=== PATIENT | female | born 1950 | race Caucasian/White ===

== ENCOUNTER 2019-03-28 14:02 | Inpatient (IN) | payer MEDICARE ==
[~2019-03-28] VITALS: Ht 162.6 cm; Wt 72.6 kg
--- NOTE | 2019-03-28 14:46 | PHYS DOC ---
Past Medical History Past Medical History: Asthma, Diabetes-Type II, GERD, Hypothyroid, Stroke Additional Past Medical Histor: OSTEIPOROSIS Past Surgical History: Appendectomy, Hysterectomy Additional Past Surgical Histo: LEFT KNEE,RIGHT SHOULDER Alcohol Use: None Drug Use: None Adult General Chief Complaint Chief Complaint: MECHANICAL FALL HPI HPI Patient is a 68 year old female with history of diabetes type 2, CVA with no residual, asthma, hypothyroidism, who presents to the ED today to be evaluated status post falling. Patient states she was at the gas station she tripped over the gas horse and fell hitting her forehead on the ground. Denies any loss of consciousness. She rates her pain is mild on bilateral hands, right knee posterior neck, head and chin. Patient states the pain is worse on touching the areas. Patient denies anything specific any alleviating the pain. She states she is on aspirin 325 mg. Review of Systems Review of Systems Constitutional: Denies fever or chills [] Eyes: Denies change in visual acuity, redness, or eye pain [] HENT: Denies nasal congestion or sore throat [] Respiratory: Denies cough or shortness of breath [] Cardiovascular: No additional information not addressed in HPI [] GI: Denies abdominal pain, nausea, vomiting, bloody stools or diarrhea [] : Denies dysuria or hematuria [] Musculoskeletal: Reports right knee pain, bilateral hand pain, posterior neck pain. Integument: Denies rash or skin lesions [] Neurologic: reports head pain, denies focal weakness or sensory changes [] All other systems were reviewed and found to be within normal limits, except as documented in this note. Current Medications Current Medications Current Medications Medications (Trade) Dose Ordered Sig/Lele Start Time Stop Time Status Last Admin Dose Admin Diphtheria/ Tetanus/Acell Pertussis (Boostrix) 0.5 ml ONCE ONCE 03/28/19 15:00 03/28/19 15:01 DC 03/28/19 15:26 0.5 ML Neomycin/ Polymyxin/ Bacitracin (Triple Antibiotic Ointment) 1 pkt 1X ONCE 03/28/19 15:00 03/28/19 15:01 DC 03/28/19 15:25 1 PKT Allergies Allergies Allergies Coded Allergies Type Severity Reaction Last Updated Verified clarithromycin Allergy Intermediate HIVES 03/28/19 Yes Physical Exam Physical Exam Constitutional: Well developed, well nourished, no acute distress, non-toxic appearance. [] HENT: Normocephalic, atraumatic, bilateral external ears normal, oropharynx moist, no oral exudates, nose normal. [] Bruising noted on the chin. Crepitus to the jaw during range of motion. Eyes: PERRLA, EOMI, conjunctiva normal, no discharge. [] Neck: Normal range of motion, diffuse paraspinal muscle tenderness to bilateral posterior cervical spine, no midline cervical spine tenderness supple, no stridor. [] Cardiovascular:Heart rate regular rhythm, no murmur [] Lungs & Thorax: Bilateral breath sounds clear to auscultation [] Abdomen: Bowel sounds normal, soft, no tenderness, no masses, no pulsatile masses. [] Skin: Warm, dry, no erythema, no rash. [] Back: No tenderness, no CVA tenderness. [] Extremities: Right knee with no obvious deformity, bruising noted on the anterior aspect of the right knee. Full range of motion to the right knee, nontoxic, negative Rima anterior-posterior drawer sign. +2 right pedal pulse. No obvious deformity noted to bilateral hands. Superficial bruising noted to bilateral thumbs. Full range of motion to bilateral hands and fingers. Adequate radial, medial, ulnar sensation. +2 bilateral radial pulses. Neurologic: Alert and oriented X 3, normal motor function, normal sensory function, no focal deficits noted. Cranial nerves II through XII intact Psychologic: Affect normal, judgement normal, mood normal. [] Current Patient Data Vital Signs Vital Signs Date Time Temp Pulse Resp B/P (MAP) Pulse Ox O2 Delivery O2 Flow Rate FiO2 03/28/19 14:11 98.4 91 20 139/75 (96) 96 Room Air 98.4 EKG EKG [] Radiology/Procedures Radiology/Procedures []PROCEDURE: HAND BILAT 3V HAND BILAT 3V, KNEE RIGHT 4V History: Patient fell today. Pain of both hands and the right knee. Bilateral hand: 3 view right hand shows degenerative change particularly at the triscaphe and first carpometacarpal joint. Ulna plus is seen. No definite acute fracture or dislocation. No significant soft tissue abnormality. IMPRESSION: No evidence of acute fracture or dislocation 3 view left hand demonstrates degenerative at the triscaphe and first carpometacarpal joint. No evidence of acute fracture. No aggressive bone destruction. No significant soft tissue abnormality. IMPRESSION: No acute fracture or dislocation. 4 view right knee: Mild degenerative change at the patellofemoral joint. No evidence of acute fracture. No aggressive bone destruction. No significant soft tissue abnormality. Small area of ossification in the region of the medial collateral ligament proximal attachment likely due to old injury. IMPRESSION: No acute fracture or dislocation. Electronically signed by: Sim Shaffer MD (03/28/2019 3:29 PM) [facility] DICTATED and SIGNED BY: SIM SHAFFER MD DATE: 03/28/19 1529 PROCEDURE: CT HEAD AND CERVICAL SPINE WO CT HEAD AND CERVICAL SPINE WO, CT MAXILLOFACIAL WO CONTRAST Indication: Pain after a fall. Exposure: One or more of the following individualized dose reduction techniques were utilized for this examination: 1. Automated exposure control 2. Adjustment of the mA and/or kV according to patient size 3. Use of iterative reconstruction technique. Technique: Standard imaging without intravenous contrast. Comparison: None Head: Low-density in the white matter bilaterally, a nonspecific finding, but which is commonly due to chronic small vessel ischemic disease in a patient of this age. There is a small area of focal hyperdensity in the left periventricular white matter, series 2, image 13 measures about 7 mm. No evidence of mass effect. The visualized sinuses appear symmetric. No notable scalp hematoma. The visualized sinuses are clear. No evidence of depressed skull fracture. IMPRESSION: Small hyperdense focus in the left periventricular white matter without definite mass effect. In the context of trauma, this is most suspicious for a small contusion or hematoma. Short-term follow-up CT head or MRI brain could be helpful for further characterization and evaluation. Findings communicated by telephone to Valerie in the emergency room at 3:24 PM on March 28, 2019. Cervical spine: Defect at the posterior ring of C1 compatible with a developmental variant. Cervico-occipital junction is intact. C1 and C2 are symmetric. No evidence of acute fracture. No evidence of aggressive bone destruction. Vertebral body height is maintained. There is no evidence of jumped or locked facet joint. Uncovertebral joint spurring. Degenerative spondylosis at multiple levels with at least moderate spinal stenosis and up to severe neural foraminal stenosis bilaterally. Prevertebral soft tissues demonstrate no swelling or hematoma. Lung apices are clear. IMPRESSION: 1. Degenerative spondylosis with stenosis. 2. No evidence of acute fracture or traumatic subluxation. Facial bones: No evidence of nasal bone fracture. The orbital floors are intact. The paranasal sinuses are clear. No fluid level identified. No evidence of an acute fracture. The orbits appear intact and symmetric. No significant soft tissue swelling. IMPRESSION: No acute fracture. Electronically signed by: Sim Shaffer MD (03/28/2019 3:24 PM) [facility] DICTATED and SIGNED BY: SIM SHAFFER MD DATE: 03/28/19 1524 PROCEDURE: KNEE RIGHT 4V HAND BILAT 3V, KNEE RIGHT 4V History: Patient fell today. Pain of both hands and the right knee. Bilateral hand: 3 view right hand shows degenerative change particularly at the triscaphe and first carpometacarpal joint. Ulna plus is seen. No definite acute fracture or dislocation. No significant soft tissue abnormality. IMPRESSION: No evidence of acute fracture or dislocation 3 view left hand demonstrates degenerative at the triscaphe and first carpometacarpal joint. No evidence of acute fracture. No aggressive bone destruction. No significant soft tissue abnormality. IMPRESSION: No acute fracture or dislocation. 4 view right knee: Mild degenerative change at the patellofemoral joint. No evidence of acute fracture. No aggressive bone destruction. No significant soft tissue abnormality. Small area of ossification in the region of the medial collateral ligament proximal attachment likely due to old injury. IMPRESSION: No acute fracture or dislocation. Electronically signed by: Sim Shaffer MD (03/28/2019 3:29 PM) [facility] DICTATED and SIGNED BY: SIM SHAFFER MD DATE: 03/28/19 1529 PROCEDURE: CT MAXILLOFACIAL WO CONTRAST CT HEAD AND CERVICAL SPINE WO, CT MAXILLOFACIAL WO CONTRAST Indication: Pain after a fall. Exposure: One or more of the following individualized dose reduction techniques were utilized for this examination: 1. Automated exposure control 2. Adjustment of the mA and/or kV according to patient size 3. Use of iterative reconstruction technique. Technique: Standard imaging without intravenous contrast. Comparison: None Head: Low-density in the white matter bilaterally, a nonspecific finding, but which is commonly due to chronic small vessel ischemic disease in a patient of this age. There is a small area of focal hyperdensity in the left periventricular white matter, series 2, image 13 measures about 7 mm. No evidence of mass effect. The visualized sinuses appear symmetric. No notable scalp hematoma. The visualized sinuses are clear. No evidence of depressed skull fracture. IMPRESSION: Small hyperdense focus in the left periventricular white matter without definite mass effect. In the context of trauma, this is most suspicious for a small contusion or hematoma. Short-term follow-up CT head or MRI brain could be helpful for further characterization and evaluation. Findings communicated by telephone to Valerie in the emergency room at 3:24 PM on March 28, 2019. Cervical spine: Defect at the posterior ring of C1 compatible with a developmental variant. Cervico-occipital junction is intact. C1 and C2 are symmetric. No evidence of acute fracture. No evidence of aggressive bone destruction. Vertebral body height is maintained. There is no evidence of jumped or locked facet joint. Uncovertebral joint spurring. Degenerative spondylosis at multiple levels with at least moderate spinal stenosis and up to severe neural foraminal stenosis bilaterally. Prevertebral soft tissues demonstrate no swelling or hematoma. Lung apices are clear. IMPRESSION: 1. Degenerative spondylosis with stenosis. 2. No evidence of acute fracture or traumatic subluxation. Facial bones: No evidence of nasal bone fracture. The orbital floors are intact. The paranasal sinuses are clear. No fluid level identified. No evidence of an acute fracture. The orbits appear intact and symmetric. No significant soft tissue swelling. IMPRESSION: No acute fracture. Electronically signed by: Sim Shaffer MD (03/28/2019 3:24 PM) [facility] DICTATED and SIGNED BY: SIM SHAFFER MD DATE: 03/28/19 1524 Course & Med Decision Making Course & Med Decision Making Pertinent Labs and Imaging studies reviewed. (See chart for details) This is a 68-year-old female patient presenting to the ED today to be evaluated status post falling at the gas station. No loss of consciousness. Patient complaining of jaw pain, head pain, bilateral hand pain, posterior neck pain right knee pain. Bilateral hand x-rays are negative for any acute findings, right knee x-rays negative for any acute findings. CT of the maxillofacial and cervical spine are negative. Radiology contacted me, he states patient's CT of the head is suspicious for small contusion or hematoma on the left periventricular region of the brain. Spoke with Kaylee BARRIENTOS for Dr. Olivera who requested we admit patient in ICU Consulted with Dr. Lion who accepted patient for admission. Patient's tetanus was updated. She is alert and oriented 4. She is neurologically intact Dragon Disclaimer Dragon Disclaimer This electronic medical record was generated, in whole or in part, using a voice recognition dictation system. Departure Departure Impression: Primary Impression: Fall Additional Impressions: Traumatic hematoma of scalp Contusion of right knee Hand contusion Disposition: ADMITTED INPATIENT Condition: STABLE Referrals: UNKNOWN PCP NAME (PCP) Problem Qualifiers Primary Impression: Fall Encounter type: initial encounter Qualified Codes: W19.XXXA - Unspecified fall, initial encounter Additional Impressions: Traumatic hematoma of scalp Encounter type: initial encounter Qualified Codes: S00.03XA - Contusion of scalp, initial encounter Contusion of right knee Encounter type: initial encounter Qualified Codes: S80.01XA - Contusion of right knee, initial encounter Hand contusion Encounter type: initial encounter Laterality: left Qualified Codes: S60.222A - Contusion of left hand, initial encounter VALERIE LUBIN [employer] Mar 28, 2019 14:46
[2019-03-28] MEDS ORDERED: NEOMY/BACITR/POLYMYXIN OINT PACKET. TP ONE (15:00)
[2019-03-28] MEDS ORDERED: DIPHTH,PERTUSS(ACELL),TET TOX 0.5 ML DISP.SYRIN. VAX IM ONE (15:00)
--- NOTE | 2019-03-28 15:27 | RAD ---
CT HEAD AND CERVICAL SPINE WO, CT MAXILLOFACIAL WO CONTRAST Indication: Pain after a fall. Exposure: One or more of the following individualized dose reduction techniques were utilized for this examination: 1. Automated exposure control 2. Adjustment of the mA and/or kV according to patient size 3. Use of iterative reconstruction technique. Technique: Standard imaging without intravenous contrast. Comparison: None Head: Low-density in the white matter bilaterally, a nonspecific finding, but which is commonly due to chronic small vessel ischemic disease in a patient of this age. There is a small area of focal hyperdensity in the left periventricular white matter, series 2, image 13 measures about 7 mm. No evidence of mass effect. The visualized sinuses appear symmetric. No notable scalp hematoma. The visualized sinuses are clear. No evidence of depressed skull fracture. IMPRESSION: Small hyperdense focus in the left periventricular white matter without definite mass effect. In the context of trauma, this is most suspicious for a small contusion or hematoma. Short-term follow-up CT head or MRI brain could be helpful for further characterization and evaluation. Findings communicated by telephone to Valerie in the emergency room at 3:24 PM on March 28, 2019. Cervical spine: Defect at the posterior ring of C1 compatible with a developmental variant. Cervico-occipital junction is intact. C1 and C2 are symmetric. No evidence of acute fracture. No evidence of aggressive bone destruction. Vertebral body height is maintained. There is no evidence of jumped or locked facet joint. Uncovertebral joint spurring. Degenerative spondylosis at multiple levels with at least moderate spinal stenosis and up to severe neural foraminal stenosis bilaterally. Prevertebral soft tissues demonstrate no swelling or hematoma. Lung apices are clear. IMPRESSION: 1. Degenerative spondylosis with stenosis. 2. No evidence of acute fracture or traumatic subluxation. Facial bones: No evidence of nasal bone fracture. The orbital floors are intact. The paranasal sinuses are clear. No fluid level identified. No evidence of an acute fracture. The orbits appear intact and symmetric. No significant soft tissue swelling. IMPRESSION: No acute fracture. Electronically signed by: Sim Shaffer MD (03/28/2019 3:24 PM) [facility]
--- NOTE | 2019-03-28 15:32 | RAD ---
HAND BILAT 3V, KNEE RIGHT 4V History: Patient fell today. Pain of both hands and the right knee. Bilateral hand: 3 view right hand shows degenerative change particularly at the triscaphe and first carpometacarpal joint. Ulna plus is seen. No definite acute fracture or dislocation. No significant soft tissue abnormality. IMPRESSION: No evidence of acute fracture or dislocation 3 view left hand demonstrates degenerative at the triscaphe and first carpometacarpal joint. No evidence of acute fracture. No aggressive bone destruction. No significant soft tissue abnormality. IMPRESSION: No acute fracture or dislocation. 4 view right knee: Mild degenerative change at the patellofemoral joint. No evidence of acute fracture. No aggressive bone destruction. No significant soft tissue abnormality. Small area of ossification in the region of the medial collateral ligament proximal attachment likely due to old injury. IMPRESSION: No acute fracture or dislocation. Electronically signed by: Sim Shaffer MD (03/28/2019 3:29 PM) [facility]
[2019-03-28] MEDS ORDERED: MORPHINE SULFATE 4 MG/ML VIAL. IV PRN (16:30)
[2019-03-28] MEDS ORDERED: ONDANSETRON PF 4 MG/2 ML VIAL. IV PRN (16:30)
[2019-03-28 16:36] LABS: BILIRUBIN,URINE SMALL (NEG); CLARITY,URINE CLEAR; COLOR,URINE YELLOW; NITRITE,URINE NEGATIVE (NEG); PH,URINE 5.5; PROTEIN,URINE NEGATIVE (NEG-TRACE)
[2019-03-28 16:41] LABS: BACTERIA,URINE 0 /HPF (0-FEW); RBC,URINE 0 /HPF (0-2); SQUAMOUS EPITHELIAL CELL,UR MOD /LPF; WBC,URINE OCC /HPF (0-4)
[2019-03-28] MEDS: ACETAMINOPHEN 325 MG TABLET. PO PRN ×2 (16:49→21:32)
[2019-03-28 16:50] LABS: BASO # 0.1 x10^3/uL (0.0-0.2); BASO % 1 % (0-3); EOS # 0.3 x10^3/uL (0.0-0.7); EOS % 3 % (0-3); HEMATOCRIT 42.9 % (36.0-47.0); HEMOGLOBIN 14.5 g/dL (12.0-15.5); LYMPH # 1.9 x10^3/uL (1.0-4.8); LYMPH % 18 % (24-48); MEAN CORPUSCULAR HEMOGLOBIN 31 pg (25-35); MEAN CORPUSCULAR HGB CONC 34 g/dL (31-37); MEAN CORPUSCULAR VOLUME 91 fL (79-100); MONO # 0.6 x10^3/uL (0.0-1.1); MONO % 6 % (0-9); NEUT # 7.8 x10^3uL (1.8-7.7); NEUT % 73 % (31-73); PLATELET COUNT 301 x10^3/uL (140-400); RED BLOOD COUNT 4.73 x10^6/uL (3.50-5.40); RED CELL DISTRIBUTION WIDTH 13.2 % (11.5-14.5); WHITE BLOOD COUNT 10.6 x10^3/uL (4.0-11.0)
[2019-03-28 16:58] LABS: PROTHROMBIN TIME PATIENT 13.2 SEC (11.7-14.0)
[2019-03-28] MEDS ORDERED: IV NORMAL SALINE 1000ML BAG 1,000 ML IV ONE (17:00)
[2019-03-28 17:12] LABS: CALCIUM 9.6 mg/dL (8.5-10.1); CREATININE 0.9 mg/dL (0.6-1.0); GFR 62.3
[2019-03-28 17:20] LABS: ALBUMIN 4.1 g/dL (3.4-5.0); ALBUMIN/GLOBULIN RATIO 1.2 (1.0-1.7); TOTAL BILIRUBIN 0.4 mg/dL (0.2-1.0); TOTAL PROTEIN 7.5 g/dL (6.4-8.2)
--- NOTE | 2019-03-28 17:22 | NUR ---
Arrived to unit by cart from ER. Alert and oriented x'4. No c/o at this time. Noted bruise under chin, scraped right knee and scratches on hands due to a fall. IVF's intact and infusing. Oriented to room and controls. Instructed pt not to get out bed without calling for assistance. Verbalized understanding. Placed on telemonitor, Beth RN, charge nurse will read and monitor it. Side rails up x's 2 with call light in reach. Cont. monitor.
[2019-03-28] MEDS ORDERED: ALBU2.5V8 INH (17:57)
[2019-03-28] MEDS ORDERED: VENL75CA PO (17:57)
[2019-03-28] MEDS ORDERED: LEVO150T5 PO (17:57)
[2019-03-28] MEDS ORDERED: ASPI325T8 PO (17:57)
[2019-03-28] MEDS ORDERED: METF500T9 PO (17:57)
[2019-03-28] MEDS ORDERED: CHOL100013 PO (17:57)
[2019-03-28] MEDS ORDERED: OMEP20CA10 PO (17:57)
[2019-03-28] MEDS ORDERED: BUDE10.22 IH (17:57)
[2019-03-28] MEDS ORDERED: MELO15TA23 PO (17:57)
[2019-03-28] MEDS ORDERED: DILT180C64 PO (17:57)
[2019-03-28] MEDS ORDERED: CETI10TA PO (17:57)
[2019-03-28 18:00] VITALS: BP 138/73
[2019-03-28 19:00] VITALS: BP 149/78
[2019-03-28] MEDS ORDERED: CETIRIZINE HCL 10 MG TABLET. PO PRN (19:45)
[2019-03-28 20:00] VITALS: BP 154/73
[2019-03-28] MEDS: BUDESONIDE 0.5 MG/2 ML NEBU. NEB SCH (20:39)
[2019-03-28] MEDS: ALBUTEROL SULFATE 2.5 MG/3 ML NEBU. NEB SCH (20:39)
[2019-03-28 21:00] VITALS: BP 130/69
[2019-03-28] MEDS ORDERED: LEVOTHYROXINE 150 MCG TABLET PO SCH (21:00)
[2019-03-28] MEDS ORDERED: metFORMIN XR 500 MG TAB.ER.24H PO SCH (21:00)
[2019-03-28] MEDS ORDERED: MELOXICAM 7.5 MG TABLET PO SCH (21:00)
[2019-03-28] MEDS ORDERED: VENLAFAXINE XR 37.5 MG CAP.ER.24H. PO SCH (21:00)
[2019-03-28] MEDS ORDERED: ASPIRIN 325 MG TABLET PO SCH (21:00)
[2019-03-28] MEDS ORDERED: NON FORMULARY ITEM (Budesonide/Formoterol Fumarate (Symbicort 80-4.5 Mcg Inhaler) 2 PUFF) IH SCH (21:00)
[2019-03-28] MEDS ORDERED: CHOLECALCIFEROL (VITAMIN D3) 1,000 UNIT TABLET PO SCH (21:00)
[2019-03-28 22:00] VITALS: BP 136/21
[2019-03-28 23:00] VITALS: BP 114/54
--- NOTE | 2019-03-28 23:04 | HP ---
ADMIT DATE: 03/28/2019 CHIEF COMPLAINT: Fall with facial trauma. HISTORY OF PRESENT ILLNESS: The patient is a pleasant 68-year-old female. She is a retired RN. Basically, she fell today. She tripped and hit her chin on concrete. She states she fell extremely hard. She has associated visual changes, although that has resolved. She did not pass out. She has a headache. We did a CAT scan in the ER showing possible hematoma in the periventricular space versus a contusion. The ER physician called Dr. Olivera of the neurosurgical service. He would like to have the patient admitted to the ICU. The patient is now being examined in room 109 in the ICU. PAST MEDICAL HISTORY: Diabetes, asthma, GERD, cerebellar syndrome, multiple falls, hypothyroidism, osteoporosis, appendectomy, hysterectomy, left knee and right shoulder surgery. ALLERGIES: CLARITHROMYCIN, EGGS AND CAISIN. FAMILY HISTORY: Coronary artery disease. SOCIAL HISTORY: She does not drink, smoke or take drugs. 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 MEDICATIONS: Reviewed, please refer to the MRAD. REVIEW OF SYSTEMS: GENERAL: No history of weight change, weakness or fevers. HEENT: She complains of neck pain and head pain. SKIN: No bruising, hair changes or rashes. EYES: No blurred, double or loss of vision. NOSE AND THROAT: No history of nosebleeds, hoarseness or sore throat. HEART: No history of palpitations, chest pain or shortness of breath on exertion. LUNGS: Denies cough, hemoptysis, wheezing or shortness of breath. GASTROINTESTINAL: Denies changes in appetite, nausea, vomiting, diarrhea or constipation. GENITOURINARY: No history of frequency, urgency, hesitancy or nocturia. NEUROLOGIC: Denies history of numbness, tingling, tremor or weakness. PSYCHIATRIC: No history of panic, anxiety or depression. ENDOCRINE: No history of heat or cold intolerance, polyuria or polydipsia. EXTREMITIES: Denies muscle weakness, joint pain, pain on walking or stiffness. PHYSICAL EXAMINATION: VITAL SIGNS: Temperature afebrile, pulse 98, respirations 18, blood pressure 138/73. GENERAL: She is alert, cooperative, very pleasant. Her family is present. HEART: Normal S1, S2. LUNGS: Clear. ABDOMEN: Soft. EXTREMITIES: Trace edema. SKIN: No rash. ENDOCRINE: No thyromegaly. LYMPHATICS: No cervical nodes. HEMATOPOIETIC: No bruising. PSYCHIATRIC: She is stable. HEENT: She is alert, oriented, moving all extremities. LABORATORY DATA: Hematology is normal. Electrolytes are normal other than a BUN of 26. ASSESSMENT AND PLAN: Fall on the concrete with a head trauma and a CAT scan showing a possible hematoma within the periventricular space. The patient is being admitted. We will consult Neurosurgery, ICU monitoring, frequent neuro checks, home meds. Full code. DVT prophylaxis. Suspect she will need another CAT scan in a day or two. [facility] DO DR: JACK/santosh JOB#: [id number] / [id number]
[2019-03-29] VITALS (12 sets, daily range): BP systolic 116–148; BP diastolic 49–76
[2019-03-29 05:21] LABS: BASO % 1 % (0-3); EOS # 0.3 x10^3/uL (0.0-0.7); EOS % 4 % (0-3); HEMATOCRIT 38.7 % (36.0-47.0); LYMPH # 1.8 x10^3/uL (1.0-4.8); LYMPH % 23 % (24-48); MEAN CORPUSCULAR HEMOGLOBIN 30 pg (25-35); MEAN CORPUSCULAR HGB CONC 34 g/dL (31-37); MEAN CORPUSCULAR VOLUME 91 fL (79-100); MONO # 0.5 x10^3/uL (0.0-1.1); MONO % 6 % (0-9); NEUT # 5.2 x10^3uL (1.8-7.7); NEUT % 66 % (31-73); PLATELET COUNT 247 x10^3/uL (140-400); RED BLOOD COUNT 4.26 x10^6/uL (3.50-5.40); RED CELL DISTRIBUTION WIDTH 13.1 % (11.5-14.5); WHITE BLOOD COUNT 7.8 x10^3/uL (4.0-11.0)
[2019-03-29 06:04] LABS: CALCIUM 9.1 mg/dL (8.5-10.1); CREATININE 0.8 mg/dL (0.6-1.0); GFR 71.3; POTASSIUM 3.9 mmol/L (3.5-5.1)
[2019-03-29] MEDS ORDERED: PANTOPRAZOLE 40 MG TABLET.DR. PO SCH (07:30)
[2019-03-29] MEDS: ALBUTEROL SULFATE 2.5 MG/3 ML NEBU. NEB SCH ×2 (07:46→11:19)
[2019-03-29] MEDS: BUDESONIDE 0.5 MG/2 ML NEBU. NEB SCH (07:46)
[2019-03-29] MEDS: ACETAMINOPHEN 325 MG TABLET. PO PRN (08:19)
--- NOTE | 2019-03-29 10:11 | RAD ---
EXAM: CT HEAD WITHOUT CONTRAST. HISTORY: Brain lesion, trauma. TECHNIQUE: Computed tomography of the head was performed without intravenous contrast. COMPARISON: 03/28/2019. FINDINGS: The site of concern within the left frontal white matter persists. It is seen as a region of hypoattenuation with a small internal region of isoattenuation measuring approximately 8 mm. There is no significant mass effect. No new hemorrhage is seen. Elsewhere, hypoattenuation within the periventricular white matter indicates mild to moderate chronic microangiopathic white matter change. The ventricles are normal in size and position. The visualized paranasal sinuses appear clear. The orbits are unremarkable. The temporal bones are unremarkable. The calvarium reveals no suspicious lesions. IMPRESSION: 1. The left frontal white matter lesion is unchanged over the short interval. Etiology is unclear, and this may represent a late subacute infarct or hemorrhage. MRI with and without contrast is recommended to exclude a mass if the diagnosis remains unclear. 2. Mild to moderate chronic microangiopathic white matter change. *One or more of the following individualized dose reduction techniques were utilized for this examination: 1. Automated exposure control. 2. Adjustment of the mA and/or kV according to patient size. 3. Use of iterative reconstruction technique. Electronically signed by: Wolfgang Perry MD (03/29/2019 10:08 AM) [facility]
--- NOTE | 2019-03-29 10:56 | PDOC ---
Provider Note Provider Note patient seen and examined s/p fall neuro intact small hyperdense focus in the left periventricular white matter without definite mass effect. In the context of trauma, this is most suspicious for a small contusion or hematoma on f/u CT the left frontal white matter lesion is unchanged over the short interval- reviewed with Dr. Olivera she may dc home and will make arrangements for f/u CT head in 1 week d/w CLARENCE FORTUNE APRN Mar 29, 2019 10:56
--- NOTE | 2019-03-29 11:47 | PDOC3 ---
Discharge Summary Visit Information Date of Admission: Mar 28, 2019 Date of Discharge: Mar 29, 2019 Final Diagnosis Fall on the concrete with a head trauma w/ possible hematoma within the periventricular space. Dm2 htn asthma Problems Medical Problems: (1) Contusion of right knee Status: Acute (2) Fall Status: Acute (3) Hand contusion Status: Acute (4) Traumatic hematoma of scalp Status: Acute Brief Hospital Course Allergies Allergies Coded Allergies Type Severity Reaction Last Updated Verified casein Allergy Intermediate 03/29/19 Yes clarithromycin Allergy Intermediate HIVES 03/28/19 Yes egg Allergy Intermediate 03/28/19 Yes Uncoded Allergies Type Severity Reaction Last Updated Verified shell Allergy Intermediate 03/28/19 Vital Signs Vital Signs Date Time Temp Pulse Resp B/P (MAP) Pulse Ox O2 Delivery O2 Flow Rate FiO2 03/29/19 11:20 97 Room Air 03/29/19 10:00 84 18 140/76 (97) 03/29/19 08:00 98.5 98.5 Lab Results Laboratory Tests Test 03/28/19 16:29 03/28/19 16:40 03/29/19 04:45 Urine Collection Type Unknown Urine Color Yellow Urine Clarity Clear Urine pH 5.5 Urine Specific [place] 1.025 Urine Protein Negative mg/dL (NEG-TRACE) Urine Glucose (UA) Negative mg/dL (NEG) Urine Ketones (Stick) Negative mg/dL (NEG) Urine Blood Negative (NEG) Urine Nitrite Negative (NEG) Urine Bilirubin Small (NEG) Urine Urobilinogen Dipstick 1.0 mg/dL (0.2 mg/dL) Urine Leukocyte Esterase Trace (NEG) Urine RBC 0 /HPF (0-2) Urine WBC Occ /HPF (0-4) Urine Squamous Epithelial Cells Mod /LPF Urine Bacteria 0 /HPF (0-FEW) Urine Mucus Marked /LPF White Blood Count 10.6 x10^3/uL (4.0-11.0) 7.8 x10^3/uL (4.0-11.0) Red Blood Count 4.73 x10^6/uL (3.50-5.40) 4.26 x10^6/uL (3.50-5.40) Hemoglobin 14.5 g/dL (12.0-15.5) 13.0 g/dL (12.0-15.5) Hematocrit 42.9 % (36.0-47.0) 38.7 % (36.0-47.0) Mean Corpuscular Volume 91 fL (79-100) 91 fL (79-100) Mean Corpuscular Hemoglobin 31 pg (25-35) 30 pg (25-35) Mean Corpuscular Hemoglobin Concent 34 g/dL (31-37) 34 g/dL (31-37) Red Cell Distribution Width 13.2 % (11.5-14.5) 13.1 % (11.5-14.5) Platelet Count 301 x10^3/uL (140-400) 247 x10^3/uL (140-400) Neutrophils (%) (Auto) 73 % (31-73) 66 % (31-73) Lymphocytes (%) (Auto) 18 % (24-48) 23 % (24-48) Monocytes (%) (Auto) 6 % (0-9) 6 % (0-9) Eosinophils (%) (Auto) 3 % (0-3) 4 % (0-3) Basophils (%) (Auto) 1 % (0-3) 1 % (0-3) Neutrophils # (Auto) 7.8 x10^3uL (1.8-7.7) 5.2 x10^3uL (1.8-7.7) Lymphocytes # (Auto) 1.9 x10^3/uL (1.0-4.8) 1.8 x10^3/uL (1.0-4.8) Monocytes # (Auto) 0.6 x10^3/uL (0.0-1.1) 0.5 x10^3/uL (0.0-1.1) Eosinophils # (Auto) 0.3 x10^3/uL (0.0-0.7) 0.3 x10^3/uL (0.0-0.7) Basophils # (Auto) 0.1 x10^3/uL (0.0-0.2) 0.0 x10^3/uL (0.0-0.2) Prothrombin Time 13.2 SEC (11.7-14.0) Prothromb Time International Ratio 1.0 (0.8-1.1) Activated Partial Thromboplast Time 29 SEC (24-38) Sodium Level 142 mmol/L (136-145) 143 mmol/L (136-145) Potassium Level 4.0 mmol/L (3.5-5.1) 3.9 mmol/L (3.5-5.1) Chloride Level 103 mmol/L (98-107) 107 mmol/L (98-107) Carbon Dioxide Level 26 mmol/L (21-32) 27 mmol/L (21-32) Anion Gap 13 (6-14) 9 (6-14) Blood Urea Nitrogen 26 mg/dL (7-20) 20 mg/dL (7-20) Creatinine 0.9 mg/dL (0.6-1.0) 0.8 mg/dL (0.6-1.0) Estimated GFR (Cockcroft-Gault) 62.3 71.3 BUN/Creatinine Ratio 29 (6-20) Glucose Level 111 mg/dL (70-99) 116 mg/dL (70-99) Calcium Level 9.6 mg/dL (8.5-10.1) 9.1 mg/dL (8.5-10.1) Total Bilirubin 0.4 mg/dL (0.2-1.0) Aspartate Amino Transf (AST/SGOT) 12 U/L (15-37) Alanine Aminotransferase (ALT/SGPT) 21 U/L (14-59) Alkaline Phosphatase 78 U/L (46-116) Total Protein 7.5 g/dL (6.4-8.2) Albumin 4.1 g/dL (3.4-5.0) Albumin/Globulin Ratio 1.2 (1.0-1.7) Laboratory Tests Test 03/28/19 16:29 03/28/19 16:40 03/29/19 04:45 Urine Collection Type Unknown Urine Color Yellow Urine Clarity Clear Urine pH 5.5 Urine Specific [place] 1.025 Urine Protein Negative mg/dL (NEG-TRACE) Urine Glucose (UA) Negative mg/dL (NEG) Urine Ketones (Stick) Negative mg/dL (NEG) Urine Blood Negative (NEG) Urine Nitrite Negative (NEG) Urine Bilirubin Small (NEG) Urine Urobilinogen Dipstick 1.0 mg/dL (0.2 mg/dL) Urine Leukocyte Esterase Trace (NEG) Urine RBC 0 /HPF (0-2) Urine WBC Occ /HPF (0-4) Urine Squamous Epithelial Cells Mod /LPF Urine Bacteria 0 /HPF (0-FEW) Urine Mucus Marked /LPF White Blood Count 10.6 x10^3/uL (4.0-11.0) 7.8 x10^3/uL (4.0-11.0) Red Blood Count 4.73 x10^6/uL (3.50-5.40) 4.26 x10^6/uL (3.50-5.40) Hemoglobin 14.5 g/dL (12.0-15.5) 13.0 g/dL (12.0-15.5) Hematocrit 42.9 % (36.0-47.0) 38.7 % (36.0-47.0) Mean Corpuscular Volume 91 fL (79-100) 91 fL (79-100) Mean Corpuscular Hemoglobin 31 pg (25-35) 30 pg (25-35) Mean Corpuscular Hemoglobin Concent 34 g/dL (31-37) 34 g/dL (31-37) Red Cell Distribution Width 13.2 % (11.5-14.5) 13.1 % (11.5-14.5) Platelet Count 301 x10^3/uL (140-400) 247 x10^3/uL (140-400) Neutrophils (%) (Auto) 73 % (31-73) 66 % (31-73) Lymphocytes (%) (Auto) 18 % (24-48) 23 % (24-48) Monocytes (%) (Auto) 6 % (0-9) 6 % (0-9) Eosinophils (%) (Auto) 3 % (0-3) 4 % (0-3) Basophils (%) (Auto) 1 % (0-3) 1 % (0-3) Neutrophils # (Auto) 7.8 x10^3uL (1.8-7.7) 5.2 x10^3uL (1.8-7.7) Lymphocytes # (Auto) 1.9 x10^3/uL (1.0-4.8) 1.8 x10^3/uL (1.0-4.8) Monocytes # (Auto) 0.6 x10^3/uL (0.0-1.1) 0.5 x10^3/uL (0.0-1.1) Eosinophils # (Auto) 0.3 x10^3/uL (0.0-0.7) 0.3 x10^3/uL (0.0-0.7) Basophils # (Auto) 0.1 x10^3/uL (0.0-0.2) 0.0 x10^3/uL (0.0-0.2) Prothrombin Time 13.2 SEC (11.7-14.0) Prothromb Time International Ratio 1.0 (0.8-1.1) Activated Partial Thromboplast Time 29 SEC (24-38) Sodium Level 142 mmol/L (136-145) 143 mmol/L (136-145) Potassium Level 4.0 mmol/L (3.5-5.1) 3.9 mmol/L (3.5-5.1) Chloride Level 103 mmol/L (98-107) 107 mmol/L (98-107) Carbon Dioxide Level 26 mmol/L (21-32) 27 mmol/L (21-32) Anion Gap 13 (6-14) 9 (6-14) Blood Urea Nitrogen 26 mg/dL (7-20) 20 mg/dL (7-20) Creatinine 0.9 mg/dL (0.6-1.0) 0.8 mg/dL (0.6-1.0) Estimated GFR (Cockcroft-Gault) 62.3 71.3 BUN/Creatinine Ratio 29 (6-20) Glucose Level 111 mg/dL (70-99) 116 mg/dL (70-99) Calcium Level 9.6 mg/dL (8.5-10.1) 9.1 mg/dL (8.5-10.1) Total Bilirubin 0.4 mg/dL (0.2-1.0) Aspartate Amino Transf (AST/SGOT) 12 U/L (15-37) Alanine Aminotransferase (ALT/SGPT) 21 U/L (14-59) Alkaline Phosphatase 78 U/L (46-116) Total Protein 7.5 g/dL (6.4-8.2) Albumin 4.1 g/dL (3.4-5.0) Albumin/Globulin Ratio 1.2 (1.0-1.7) Brief Hospital Course Ms. Rico is a 68 old female admit after a fall and head injury, admit to ICU neuro intact PER NEUROSURG: small hyperdense focus in the left periventricular white matter without definite mass effect. likely small contusion or hematoma and f./u CT OK plans for f/u CT head in 1 week Discharge Information Condition at Discharge: Improved Follow Up: Weeks Disposition/Orders: D/C to Home Scheduled Aspirin (Aspirin) 325 Mg Tablet, 1 TAB PO HS for thin blood, #30 Ref 5 (Reported) Entered as Reported by: SOURAV BARRETT on 03/28/191756 Last Taken: Unknown Dose on 03/27/19 Last Action: Continued on 03/28/191936 by NIAL CASTLE Budesonide/Formoterol Fumarate (Symbicort 80-4.5 Mcg Inhaler) 10.2 Gm Hfa.aer.ad, 2 PUFF IH BID for asthma, #10.2 Ref 5 (Reported) Entered as Reported by: SOURAV BARRETT on 03/28/191756 Last Taken: Unknown Dose on 03/27/19 Last Action: Converted on 03/28/191936 by NIAL ROSANA Cholecalciferol (Vitamin D3) (Vitamin D) 1,000 Unit Capsule, 3 CAP PO HS for vitamin d, #30 Ref 3 (Reported) Entered as Reported by: SOURAV BARRETT on 03/28/191756 Last Taken: Unknown Dose on 03/27/19 Last Action: Converted on 03/28/191936 by NIAL CASTLE Diltiazem Hcl (Cartia Xt) 180 Mg Cap.er.24h, 180 MG PO HS for heartrate, (Reported) Entered as Reported by: SOURAV BARRETT on 03/28/191756 Last Taken: Unknown Dose on 03/27/19 Last Action: Converted on 03/28/191936 by NIAL CASTLE Levothyroxine Sodium (Levothyroxine Sodium) 150 Mcg Tablet, 1 TAB PO HS for hypothyroid, #30 Ref 5 (Reported) Entered as Reported by: SOURAV BARRETT on 03/28/191756 Last Taken: Unknown Dose on 03/27/19 Last Action: Converted on 03/28/191936 by NIAL CASTLE Meloxicam (Meloxicam) 15 Mg Tablet, 1 TAB PO HS for Rheumatiod arthritis, #30 Ref 2 (Reported) Entered as Reported by: SOURAV BARRETT on 03/28/191756 Last Taken: Unknown Dose on 03/27/19 Last Action: Converted on 03/28/191936 by [facility] Metformin Hcl (Metformin Hcl Er) 500 Mg Tab.er.24h, 500 MG PO HS for ANTI- DIABETIC, Ref 0 (Reported) Entered as Reported by: SOURAV BARRETT on 03/28/191756 Last Taken: Unknown Dose on 03/27/19 Last Action: Converted on 03/28/191936 by [facility] Omeprazole (Omeprazole) 20 Mg Capsule.dr, 1 CAP PO BID for ulcer, #30 Ref 5 (Reported) Entered as Reported by: SOURAV BARRETT on 03/28/191756 Last Taken: Unknown Dose on 03/27/19 Last Action: Converted on 03/28/191936 by [facility] Venlafaxine Hcl (Effexor Xr) 75 Mg Cap.er.24h, 1 CAP PO HS for muscle relaxer, #30 Ref 1 (Reported) Entered as Reported by: SOURAV BARRETT on 03/28/191756 Last Taken: Unknown Dose on 03/27/19 Last Action: Converted on 03/28/191936 by [facility] Scheduled PRN Albuterol Sulfate (Proair Hfa) 8.5 Gm Hfa.aer.ad, 2 PUFF INH PRN Q6HRS PRN for SHORTNESS OF BREATH, (Reported) Entered as Reported by: SOURAV BARRETT on 03/28/191756 Last Taken: Unknown Dose on 03/27/19 Last Action: New Order on 03/28/191756 by SOURAV BARRETT Cetirizine Hcl (All Day Allergy) 10 Mg Tablet, 1 TAB PO PRN DAILY PRN for ALLERGIES, #30 (Reported) Entered as Reported by: SOURAV BARRETT on 03/28/191756 Last Taken: Unknown Dose on 03/27/19 Last Action: Continued on 03/28/191936 by TYE LINDQUIST MD Mar 29, 2019 11:47
== END 2019-03-29 12:00 | disposition home or self-care (01) | DRG 87 ==
LOC: ER 14:02 → 1 WEST ICU 16:04
PROVIDERS: ADMIT Internal Medicine; ATTEND Internal Medicine
DX: S06.320A Contusion and laceration of left cerebrum without loss of consciousness, initial encounter (principal); S00.03XA Contusion of scalp, initial encounter; E03.9 Hypothyroidism, unspecified; E11.9 Type 2 diabetes mellitus without complications; I10 Essential (primary) hypertension; J45.909 Unspecified asthma, uncomplicated; K21.9 Gastro-esophageal reflux disease without esophagitis; M81.0 Age-related osteoporosis without current pathological fracture; S60.229A Contusion of unspecified hand, initial encounter; S80.01XA Contusion of right knee, initial encounter; W01.0XXA Fall on same level from slipping, tripping and stumbling without subsequent striking against object, initial encounter; Y93.89 Activity, other specified; Z79.899 Other long term (current) drug therapy; Y92.89 Other specified places as the place of occurrence of the external cause; Y99.8 Other external cause status; Z79.82 Long term (current) use of aspirin; Z82.49 Family history of ischemic heart disease and other diseases of the circulatory system; Z86.73 Personal history of transient ischemic attack (TIA), and cerebral infarction without residual deficits; Z90.49 Acquired absence of other specified parts of digestive tract; Z90.710 Acquired absence of both cervix and uterus; Z88.8 Allergy status to other drugs, medicaments and biological substances; Z88.1 Allergy status to other antibiotic agents; Z91.012 Allergy to eggs; Z91.013 Allergy to seafood
CPT/HCPCS: 36415; 70450; 70486; 72125; 73130; 73564; 80048; 80053; 81001; 85025; 85610; 85730; 87641; 90471; 90715; 94640; 94760; 96360; J7030; J7613; J7626; 99285-25

== ENCOUNTER 2021-11-17 22:49 | Emergency (ER) | payer MEDICARE ==
[~2021-11-17] VITALS: Ht 154.9 cm; Wt 83.1 kg
[~2021-11-17 22:49] MED LIST: ALBU2.5V8 INH; ASPI325T8 PO; BUDE10.22 IH; CETI10TA PO; CHOL100013 PO; DILT180C64 PO; LEVO150T5 PO; MECL-75 PO; MELO15TA23 PO; METF-658 PO; OMEP20CA16 PO; VENL75CA PO
--- NOTE | 2021-11-17 22:59 | ED.ADGEN ---
Past Medical History Past Medical History: Asthma, Diabetes-Type II, GERD, Hypothyroid, Stroke Additional Past Medical Histor: OSTEIPOROSIS, SDH Past Surgical History: Appendectomy, Hysterectomy Additional Past Surgical Histo: LEFT KNEE,RIGHT SHOULDER Smoking Status: Never Smoker Alcohol Use: None Drug Use: None General Adult EDM: Chief Complaint: NEURO SYMPTOMS/DEFICITS HPI: HPI: Patient is a 71 year old female coming in via EMS from home. Patient had tried to drink and had a come out of her mouth, then she is trying get up slid off her couch and had right-sided weakness and facial droop. Symptoms started about 25 minutes prior to arrival, at 2220. Patient has a history of a previous CVA about 15 years ago she says she had some vision changes for a week afterwards but no other residual deficits. Patient states she has been watched for atrial fibrillation, and has diabetes. Takes a full size aspirin and Metformin. Review of Systems: Review of Systems: All other systems within normal limits except for as noted in the HPI Current Medications: Current Medications Medications (Trade) Dose Ordered Sig/Lele Start Time Stop Time Status Last Admin Dose Admin Alteplase, Recombinant 67.3 ml @ 67.3 mls/hr 1X ONCE 11/18/21 00:00 11/18/21 00:59 Iohexol (Omnipaque 350 Mg/ml) 100 ml STK-MED ONCE 11/17/21 23:42 11/17/21 23:42 DC Labetalol HCl (Normodyne Iv Push) 10 mg PRN Q10MIN PRN 11/18/21 00:00 Nicardipine HCl 50 mg/Sodium Chloride 250 ml @ 25 mls/hr CONT PRN PRN 11/18/21 00:00 Sodium Chloride 100 ml @ 100 mls/hr 1X ONCE 11/18/21 00:00 11/18/21 00:59 Allergies: Allergies: Allergies Coded Allergies Type Severity Reaction Last Updated Verified casein Allergy Intermediate 03/29/19 Yes clarithromycin Allergy Intermediate HIVES 03/28/19 Yes egg Allergy Intermediate 03/28/19 Yes Uncoded Allergies Type Severity Reaction Last Updated Verified shell Allergy Intermediate 03/28/19 Physical Exam: PE: Constitutional: Well developed, well nourished, no acute distress, non-toxic appearance. [] HENT: Normocephalic, atraumatic, bilateral external ears normal, nose normal. [] Eyes: PERRLA, conjunctiva normal, no discharge. [] Neck: No rigidity, supple, no stridor. [] Cardiovascular: Regular rate and rhythm, brisk cap refill [] Lungs & Thorax: Non labored symmetric respirations, no tachypnea or respiratory distress [] Abdomen: Soft, nondistended. Skin: Warm, dry, no erythema, no rash. [] Back: Unremarkable Extremities: No deformities, range of motion grossly intact, no lower extremity edema [] Neurologic: Alert and oriented X 3, no focal deficits noted. Right lower facial droop, tongue deviation to the right. Right upper extremity strength 1 out of 5, 0 out of 5 on lower extremity. Sensation intact throughout [] Psychologic: Affect normal, judgement normal, mood normal. [] Current Patient Data: Labs: Laboratory Tests Test 11/17/21 22:50 11/17/21 22:55 White Blood Count 9.7 x10^3/uL (4.0-11.0) Red Blood Count 4.75 x10^6/uL (3.50-5.40) Hemoglobin 14.6 g/dL (12.0-15.5) Hematocrit 43.4 % (36.0-47.0) Mean Corpuscular Volume 91 fL (79-100) Mean Corpuscular Hemoglobin 31 pg (25-35) Mean Corpuscular Hemoglobin Concent 34 g/dL (31-37) Red Cell Distribution Width 13.8 % (11.5-14.5) Platelet Count 331 x10^3/uL (140-400) Neutrophils (%) (Auto) 63 % (31-73) Lymphocytes (%) (Auto) 27 % (24-48) Monocytes (%) (Auto) 7 % (0-9) Eosinophils (%) (Auto) 2 % (0-3) Basophils (%) (Auto) 1 % (0-3) Neutrophils # (Auto) 6.1 x10^3/uL (1.8-7.7) Lymphocytes # (Auto) 2.6 x10^3/uL (1.0-4.8) Monocytes # (Auto) 0.7 x10^3/uL (0.0-1.1) Eosinophils # (Auto) 0.2 x10^3/uL (0.0-0.7) Basophils # (Auto) 0.1 x10^3/uL (0.0-0.2) Prothrombin Time 12.5 SEC (11.7-14.0) Prothrombin Time INR 0.9 (0.8-1.1) Activated Partial Thromboplast Time 27 SEC (24-38) Glucose (Fingerstick) 163 mg/dL (70-99) H Laboratory Tests 11/17/21 22:50 EKG: EKG: Sinus rhythm, heart rate 80 bpm, left axis deviation, no ST elevation or depression, no ectopy. [] Heart Score: C/O Chest Pain: No HEART Score for Chest Pain: HEART Score for Chest Pain Response (Comments) Value History Slighlty/Non-Suspicious 0 ECG Nonspecific Repolarizatio 1 Age > 65 2 Risk Factors 1 or 2 Risk Factors 1 Troponin < Normal Limit 0 Total 4 Risk Factors: Risk Factors: DM, Current or recent (<one month) smoker, HTN, HLP, family history of CAD, obesity. Risk Scores: Score 0 - 3: 2.5% MACE over next 6 weeks - Discharge Home Score 4 - 6: 20.3% MACE over next 6 weeks - Admit for Clinical Observation Score 7 - 10: 72.7% MACE over next 6 weeks - Early Invasive Strategies Radiology/Procedures: Radiology/Procedures: [facility] [address] [place] [address] IMAGING REPORT Signed PATIENT: SHANNON COOPER LACCOUNT: [id number] : 1950 LOCATION: ER AGE: 71 SEX: F EXAM STATUS: PRE ER ORD. PHYSICIAN: MICHAEL CROCKETT MD REASON: right weakness PROCEDURE: CT ANGIOGRAPHY HEAD AND NECK PQRS Compliance Statement: One or more of the following individualized dose reduction techniques were utilized for this examination: 1. Automated exposure control 2. Adjustment of the mA and/or kV according to patient size 3. Use of iterative reconstruction technique CTA HEAD AND NECK W/WO CONTRAST Clinical Indication: Reason: right weakness Comparison: CT head without contrast, earlier same day. Technique: Helical CT imaging from inferior to the aortic arch to the skull vertex is performed after 75 cc of Omnipaque [address] angiogram protocol. 3-D MIP reconstructions of the cervical carotid arteries and [place] are performed. PQRS Compliance Statement - Stenosis calculations for CT, MR and conventional angiography are based upon measurement of the distal ICA diameter in accordance with the NASCET methodology. Stenosis calculations for carotid ultrasound studies are derived from validated velocity criteria which are known to correlate with the NASCET methodology. Findings: Aortic arch branches are patent. The common carotid arteries, carotid bifurcations, and the cervical internal carotid arteries are patent. The cervical vertebral arteries are patent. The left vertebral artery is dominant. The posterior circulation is intact. There is a filling defect in the left M1 segment of the middle cerebral artery, image 199, coronal image 78. Filling defect may be due to thrombus. There is contrast opacification of more distal branches. The right middle cerebral artery in the anterior cerebral arteries are patent. No obvious abnormality of the dural venous sinuses. No abnormal enhancement in the brain parenchyma is identified. No cervical adenopathy is seen. There are surgical clips in the right thyroid bed. The upper lungs are clear. There is degenerative spondylosis of the cervical spine. IMPRESSION: 1. There is a severe filling defect of the left M1 segment that may be due to thrombus. There is contrast opacification of more distal branches. 2. There is no significant stenosis of the cervical carotid or vertebral arteries. FOR INTERNAL CODING PURPOSES Critical result: Findings discussed with MICHAEL CROCKETT MD at 11/17/2021 11:24 PM. RESULT CODE: (C) 1. Electronically signed by: Darnell Teran MD (11/17/2021 11:28 PM) [facility] DICTATED and SIGNED BY: DARNELL TERAN MD DATE: 11/17/21 [id number] 0 [][facility] [address] [place], [place] [id number] IMAGING REPORT Signed PATIENT: SHANNON COOPER LACCOUNT: [id number] : 1950 LOCATION: ER AGE: 71 SEX: F EXAM STATUS: PRE ER ORD. PHYSICIAN: MICHAEL CROCKETT MD REASON: right weakness [phone] PROCEDURE: CT CODE STROKE HEAD [facility] Compliance Statement: One or more of the following individualized dose reduction techniques were utilized for this examination: 1. Automated exposure control 2. Adjustment of the mA and/or kV according to patient size 3. Use of iterative reconstruction technique CT HEAD WITHOUT CONTRAST History: Reason: right weakness, code stroke. Comparison: CT head without contrast April 10, 2019. Technique: Axial images are obtained of the head from the skull base through the vertex without IV contrast. Findings: No mass-effect, midline shift, extra-axial fluid collection, hemorrhage, or obvious acute infarction is identified. Basilar cisterns are patent. The ventricles and sulci are prominent, consistent with generalized cerebral atrophy. There is periventricular white matter hypoattenuation. This is a nonspecific finding but is commonly due to chronic small vessel ischemic disease. There are old bilateral basal ganglia lacunar infarcts. Bone windows demonstrate no acute calvarial abnormality. Calvarium vertex is incompletely imaged. The visualized paranasal sinuses are clear. Mastoid air cells are well aerated. IMPRESSION: 1. No acute intracranial abnormality. 2. Generalized cerebral atrophy and periventricular white matter changes probably due to chronic small vessel ischemic disease. FOR INTERNAL CODING PURPOSES Critical result: Findings discussed with MICHAEL CROCKETT MD at 11/17/2021 11:11 PM. RESULT CODE: (C) 1. Electronically signed by: Darnell Teran MD (11/17/2021 11:13 PM) [facility] DICTATED and SIGNED BY: DARNELL TERAN MD DATE: 11/17/21 [id number] Course & Med Decision Making: Course & Med Decision Making Pertinent Labs and Imaging studies reviewed. (See chart for details) [] Dr. Preciado, neurologist contacted at [phone], recommends TPA and consult to [facility] for IR intervention. Discussed TPA with patient. Patient has a long history of medication and food allergies, has had difficulty breathing and angioedema in the past. Discussed risks of bleeding and allergic reaction with TPA. On review of patient's medication allergies they are mostly antibiotics and foods, does not have any previous history of allergic reaction or angioedema with a RL inhibitor or an ARB. Previous allergic reactions seem to be more histamine mediated, no previou s history of a bradykinin mediated angioedema [facility] contacted spoke with Dr. Layne at [phone], discussed what patient has a history of angioedema. She would like to speak with her neuro interventionalist. Return call at [phone] and would like emergent transfer to for intervention. Discussed with her that patient has not had angioedema to an RL or an ARB. Discussed risks with patient and family, they still would like to continue with TPA. Total critical care time: 75 The time involved in the performance of separately reportable/billable procedures was not counted toward critical care time. Due to a high probability of clinically significant, life-threatening deterioration the patient required a high level of care to intervene emergently and I personally spent this critical time directly and personally managing the patient. The critical care time included obtaining a history, examination of the patient, assessment of vital signs, ordering and review of studies, arranging urgent treatment with development of a management plan, evaluation of patient's response to treatment, frequent reassessment, and discussions with other providers and/or family members. Paige Disclaimer: Paige Disclaimer: This electronic medical record was generated, in whole or in part, using a voice recognition dictation system. Departure Departure Impression: Primary Impression: Acute ischemic left MCA stroke Disposition: 02 SHORT TERM HOSPITAL Condition: CRITICAL Referrals: LAURA LYNN MD (PCP) MICHAEL CROCKETT MD Nov 17, 2021 22:59
[2021-11-17 23:01] LABS: BASO # 0.1 x10^3/uL (0.0-0.2); BASO % 1 % (0-3); EOS # 0.2 x10^3/uL (0.0-0.7); EOS % 2 % (0-3); HEMATOCRIT 43.4 % (36.0-47.0); HEMOGLOBIN 14.6 g/dL (12.0-15.5); LYMPH # 2.6 x10^3/uL (1.0-4.8); LYMPH % 27 % (24-48); MEAN CORPUSCULAR HEMOGLOBIN 31 pg (25-35); MEAN CORPUSCULAR HGB CONC 34 g/dL (31-37); MEAN CORPUSCULAR VOLUME 91 fL (79-100); MONO # 0.7 x10^3/uL (0.0-1.1); MONO % 7 % (0-9); NEUT # 6.1 x10^3/uL (1.8-7.7); NEUT % 63 % (31-73); PLATELET COUNT 331 x10^3/uL (140-400); RED BLOOD COUNT 4.75 x10^6/uL (3.50-5.40); RED CELL DISTRIBUTION WIDTH 13.8 % (11.5-14.5); WHITE BLOOD COUNT 9.7 x10^3/uL (4.0-11.0)
--- NOTE | 2021-11-17 23:15 | RAD ---
PQRS Compliance Statement: One or more of the following individualized dose reduction techniques were utilized for this examinat ion: 1. Automated exposure control 2. Adjustment of the mA and/or kV according to patient size 3. Use of iterative reconstruction technique CT HEAD WITHOUT CONTRAST History: Reason: right weakness, code stroke. Comparison: CT head without contrast April 10, 2019. Technique: Axial images are obtained of the head from the skull base through the vertex without IV co ntrast. Findings: No mass-effect, midline shift, extra-axial fluid collection, hemorrhage, or obvious acute infarction is identified. Basilar cisterns are patent. The ventricles and sulci are prominent, consistent with generalized cerebral atrophy. There is perive ntricular white matter hypoattenuation. This is a nonspecific finding but is commonly due to chronic small vessel ischemic disease. There are old bilateral basal ganglia lacunar infarcts. Bone windows demonstrate no acute calvarial abnormality. Calvarium vertex is incompletely imaged. The visualized paranasal sinuses are clear. Mastoid air cells are well aerated. IMPRESSION: 1. No acute intracranial abnormality. 2. Generalized cerebral atrophy and periventricular white matter changes probably due to chronic sma ll vessel ischemic disease. FOR INTERNAL CODING PURPOSES Critical result: Findings discussed with MICHAEL CROCKETT MD at 11/17/2021 11:11 PM. RESULT CODE: (C) 1. Electronically signed by: Darnell Teran MD (11/17/2021 11:13 PM) [facility]
[2021-11-17 23:19] LABS: PROTHROMBIN TIME PATIENT 12.5 SEC (11.7-14.0)
--- NOTE | 2021-11-17 23:30 | RAD ---
PQRS Compliance Statement: One or more of the following individualized dose reduction techniques were utilized for this examinat ion: 1. Automated exposure control 2. Adjustment of the mA and/or kV according to patient size 3. Use of iterative reconstruction technique CTA HEAD AND NECK W/WO CONTRAST Clinical Indication: Reason: right weakness Comparison: CT head without contrast, earlier same day. Technique: Helical CT imaging from inferior to the aortic arch to the skull vertex is performed after 75 cc of Omnipaque [address] angiogram protocol. 3-D MIP reconstructions of the cervi meet carotid arteries and [place] are performed. PQRS Compliance Statement - Stenosis calculations for CT, MR and conventional angiography are based u sandra measurement of the distal ICA diameter in accordance with the NASCET methodology. Stenosis calcu lations for carotid ultrasound studies are derived from validated velocity criteria which are known t o correlate with the NASCET methodology. Findings: Aortic arch branches are patent. The common carotid arteries, carotid bifurcations, and the cervical internal carotid arteries are patent. The cervical vertebral arteries are patent. The left vertebral artery is dominant. The posterior circulation is intact. There is a filling defect in the left M1 segment of the middle cerebral artery, image 199, coronal im age 78. Filling defect may be due to thrombus. There is contrast opacification of more distal branche s. The right middle cerebral artery in the anterior cerebral arteries are patent. No obvious abnormality of the dural venous sinuses. No abnormal enhancement in the brain parenchyma i s identified. No cervical adenopathy is seen. There are surgical clips in the right thyroid bed. The upper lungs are clear. There is degenerative spondylosis of the cervical spine. IMPRESSION: 1. There is a severe filling defect of the left M1 segment that may be due to thrombus. There is con trast opacification of more distal branches. 2. There is no significant stenosis of the cervical carotid or vertebral arteries. FOR INTERNAL CODING PURPOSES Critical result: Findings discussed with MICHAEL CROCKETT MD at 11/17/2021 11:24 PM. RESULT CODE: (C) 1. Electronically signed by: Darnell Teran MD (11/17/2021 11:28 PM) [facility]
[2021-11-17] MEDS ORDERED: IOHEXOL 350 MG/ML 100 ML VIAL. ONE (23:42)
[2021-11-18] MEDS ORDERED: ALTEPLASE IV ONE
[2021-11-18] MEDS ORDERED: LABETALOL 20 MG/4 ML DISP.SYRIN. IVP PRN
[2021-11-18] MEDS ORDERED: IV NORMAL SALINE 100ML 100 ML IV ONE
[2021-11-18] MEDS ORDERED: ALTEPLASE 7.5 MG IV ONE
[2021-11-18 00:16] LABS: CALCIUM 8.2 mg/dL (8.5-10.1); GFR 54.7; POTASSIUM 4.2 mmol/L (3.5-5.1)
[2021-11-18 00:39] VITALS: BP 167/76
--- NOTE | 2021-11-18 04:31 | EKG ---
[facility] [address] [place] [address] Test Date: 2021-11-17 Test Time: 23:22:38 Pat Name: SHANNON COOPER Department: Room: Gender: F [place]: : 1950 Requested By: MICHAEL CROCKETT Order Number: [id number] Reading MD: Koko Summers Measurements Intervals [place] Rate: 80 P: HI: QRS: -37 QRSD: 96 T: 66 QT: 420 QTc: 488 Interpretive Statements SINUS RHYTHM ABNORMAL LEFT AXIS DEVIATION LEFT ANTERIOR FASCICULAR BLOCK PROLONGED QT Electronically Signed On 11-18-2021 19:27:56 DIE INSPECTOR by Koko Summers
== END 2021-11-18 00:43 | disposition short-term general hospital (02) ==
LOC: ER 22:49
DX: I63.512 Cerebral infarction due to unspecified occlusion or stenosis of left middle cerebral artery (principal); J45.909 Unspecified asthma, uncomplicated; K21.9 Gastro-esophageal reflux disease without esophagitis; E11.9 Type 2 diabetes mellitus without complications; E03.9 Hypothyroidism, unspecified; Z86.73 Personal history of transient ischemic attack (TIA), and cerebral infarction without residual deficits; Z88.1 Allergy status to other antibiotic agents; Z91.012 Allergy to eggs; Z91.013 Allergy to seafood
CPT/HCPCS: 36415; 37195; 70450; 70496; 70498; 80048; 82962; 85025; 85610; 85730; 93005; 96360; 99285; J2997